=== PATIENT | male | born 1945 | race Caucasian/White ===

== ENCOUNTER 2018-11-29 11:45 | Outpatient (CLI) | payer MEDICARE, BC | END 2018-11-29 23:59 | disposition home or self-care (01) | LOC: RT 11:45 | PROVIDERS: ATTEND Family Medicine | DX: J43.8 Other emphysema (principal); R06.09 Other forms of dyspnea; F17.210 Nicotine dependence, cigarettes, uncomplicated; Z79.82 Long term (current) use of aspirin | CPT/HCPCS: 94010; 94727; 94729 ==

== ENCOUNTER 2021-01-23 09:20 | Day surgery (SDC) | payer MEDICARE, BC ==
[2021-01-16 11:58] LABS: BASOPHILS % (AUTO) 0.5 % (0-1); EOSINOPHILS # (AUTO) 0.1 X10'3 (0-0.9); EOSINOPHILS % (AUTO) 1.2 % (0-6); LYMPHOCYTES # (AUTO) 1.6 X10'3 (1.1-4.8); LYMPHOCYTES % (AUTO) 26.6 % (21-51); MEAN CORPUSCULAR HEMOGLOBIN 30.3 PG (27.0-31.0); MEAN CORPUSCULAR HGB CONC 33.2 g/dL (33.0-36.5); MEAN CORPUSCULAR VOLUME 91.1 FL (78-98); MONOCYTES # (AUTO) 0.7 X10'3 (0-0.9); MONOCYTES % (AUTO) 11.2 % (2-12); NEUTROPHILS # (AUTO) 3.7 X10'3 (1.8-7.7); NEUTROPHILS % (AUTO) 60.5 % (42-75); PRE OP HEMOGLOBIN 12.6 g/dL (14.0-17.9); PRE OP PLATELET COUNT 226 X10'3 (140-440); RED BLOOD COUNT 4.17 X10'6 (4.70-6.10); RED CELL DISTRIBUTION WIDTH 14.4 % (11.5-14.5)
[2021-01-16 12:13] LABS: ALBUMIN 4.1 G/DL (3.4-5.0); ALBUMIN/GLOBULIN RATIO 1.2 (1.1-1.5); ALKALINE PHOSPHATASE 55 IU/L (46-116); BLOOD UREA NITROGEN 17 MG/DL (7-18); BUN/CREATININE RATIO 18.1 (5.4-32.0); CALCIUM 9.2 MG/DL (8.5-10.1); CHLORIDE 103 MMOL/L (99-107); CREATININE 0.94 MG/DL (0.60-1.10); PRE OP ALT 28 U/L (30-65); PRE OP ANION GAP 9 (8-16); PRE OP AST 24 U/L (10-37); PRE OP BILIRUB, TOTAL 0.4 MG/DL (0.0-1.0); PRE OP GLUCOSE 96 MG/DL (70-104); PRE OP POTASSIUM 4.6 MMOL/L (3.4-5.1); PRE OP SODIUM 141 MMOL/L (135-145); TOTAL CARBON DIOXIDE 29.4 MMOL/L (24-32); TOTAL PROTEIN 7.4 G/DL (6.4-8.2); eGFR 78 ML/MIN
[~2021-01-23] VITALS: Ht 177.8 cm; Wt 78.0 kg
[~2021-01-23 09:20] MED LIST: ASPI-1265 PO; BUPIVAcaine/PF 2.5 mg/ml (0.25%) 30ml vial ONE; MULT-1085 PO; OMEG10006 PO; cefazolin/dext.iso 2gm/100ml 100 ML IV ONE; famotidine 20mg tablet PO ONE; ringers solution, lacted 1,000 ML IV SCH
[2021-01-23 10:37] VITALS: BP 125/75
[2021-01-23] MEDS ORDERED: LIDOcaine 0.5% (5mg/ml) 50ml vial ONE (12:14)
[2021-01-23] MEDS ORDERED: fentaNYL/PF 50MCG/1 ML 2ML syringe ONE (12:19)
[2021-01-23] MEDS ORDERED: midazolam 1 mg/ML 2ml injection ONE (12:19)
[2021-01-23 13:34] VITALS: BP 163/91
--- NOTE | 2021-01-23 13:34 | NUR ---
Received from OR via [facility] , accompanied by Anesthesiologist LIBRADO and report given by Anesthesiolgist. PATIENT IWTH 20GP IV IN LEFT UE RUNNING LR AT 100. PATIENT WITH BILAT BIAS DRESSINGS PRESENT TO WRISTS- BOTH CDI. KAM. + CAP REFILL TO ALL FINGERS. VSS Addendum: 01/23/21 at 1342 by Inder Bledsoe RN, RN Amended: Links added.
[2021-01-23 13:44] VITALS: BP 162/84
[2021-01-23] MEDS ORDERED: meperidine/PF 25mg/ml syringe IV PRN ×3 (13:50)
[2021-01-23] MEDS ORDERED: morphine 2 MG/ML inj. syringe IV PRN (13:50)
[2021-01-23] MEDS ORDERED: ringers solution, lacted 1,000 ML IV SCH (13:50)
[2021-01-23] MEDS ORDERED: morphine 4 MG/ML inj SYRINge IV PRN (13:50)
[2021-01-23] MEDS ORDERED: ondansetron/PF 4mg/2ml inj IV PRN (13:50)
[2021-01-23] MEDS ORDERED: proCHLORperazine 10 MG/2 ml inj IV PRN (13:50)
[2021-01-23 13:54] VITALS: BP 160/81
[2021-01-23 14:04] VITALS: BP 158/76
--- NOTE | 2021-01-23 14:44 | NUR ---
ALL DISCHARGE CRITERIA HAS BEEN MET. VSS, PAIN AT A TOLERABLE LEVEL, VOIDING AND ABLE TO SAFELY AMBULATE AND TRANSFER SELF. IV TAKEN OUT WITHOUT ANY COMPLICATIONS. ALL DISCHARGE INSTRUCTIONS COVERED WITH PATIENT AND ALL QUESTIONS ANSWERED. PATIENT TAKEN OUT VIA WHEELCHAIR TO PERSONAL VEHICLE WHERE FAMILY/FRIEND DROVE PATIENT HOME. [id number] PATIENT AWAITING RIDE. VSS. Addendum: 01/23/21 at 1455 by Inder Bledsoe RN, RN Amended: Links added.
== END 2021-01-23 14:44 | disposition home or self-care (01) ==
LOC: PAS 09:20
PROVIDERS: ATTEND Orthopaedic Surgery Hand Surgery
DX: G56.03 Carpal tunnel syndrome, bilateral upper limbs (principal); J44.9 Chronic obstructive pulmonary disease, unspecified; I25.2 Old myocardial infarction; M19.90 Unspecified osteoarthritis, unspecified site; Z20.822 Contact with and (suspected) exposure to COVID-19; Z79.82 Long term (current) use of aspirin; Z98.890 Other specified postprocedural states; Z87.891 Personal history of nicotine dependence; Z72.89 Other problems related to lifestyle; Z95.1 Presence of aortocoronary bypass graft; Z85.828 Personal history of other malignant neoplasm of skin
CPT/HCPCS: 36415; 64721; 80053; 82948; 85025; A6222; J2001; J2250; J3010; J3490; U0003; A4215; A6449; J7120